=== PATIENT | male | born 1970 | race Caucasian/White ===

== ENCOUNTER 2017-08-24 20:22 | Emergency (ER) | payer MEDICAID ==
[2017-08-24] MEDS ORDERED: NORMAL SALINE 1000 ML 1,000 ML IV ONE (20:43)
[2017-08-24] MEDS ORDERED: ONDANSETRON HCL INJ/PF 4 MG/2 ML SDV IV ONE (20:44)
[2017-08-24] MEDS ORDERED: HYDROMORPHONE HCL INJ/PF 2 MG/ML AMPULE IV ONE ×2 (20:45→22:35)
--- NOTE | 2017-08-24 20:48 | ER Document Report ---
ED Medical Screen (RME) - General Chief Complaint: Abdominal Pain Stated Complaint: PAIN ON LEFT SIDE OF BODY Time Seen by Provider: 08/24/17 20:42 Notes: Patient's complaining of left lower quadrant abdominal pain for the past 3 days. Occasionally, it shoots across to the right abdomen. Patient has been nauseated but not vomiting. No diarrhea. Last bowel movement was last night. Patient had similar pain to what he is now experiencing 2 years ago when he had diverticulitis and subsequently had surgery to remove a portion of large bowel. He had C. difficile at that time, as well. TRAVEL OUTSIDE OF THE [place] IN LAST 30 DAYS: No - Related Data Allergies/Adverse Reactions: morphine Allergy (Verified 08/24/17 20:25) Past Medical History - Social History Chew tobacco use (# tins/day): No Frequency of alcohol use: Rare Drug Abuse: Marijuana Renal/ Medical History: Reports: Hx Kidney Stones. Denies: Hx Peritoneal Dialysis GI Medical History: Reports: Hx Gastroesophageal Reflux Disease - Immunizations Hx Diphtheria, Pertussis, Tetanus Vaccination: Yes History of Influenza Vaccine for 08/2017 - 01/2018 Season: No Physical Exam - Vital signs Vitals: Temp Pulse Resp BP Pulse Ox 97.8 F 90 20 137/93 H 98 08/24/17 20:26 08/24/17 20:26 08/24/17 20:26 08/24/17 20:26 08/24/17 20:26 Course - Vital Signs Vital signs: Temp Pulse Resp BP Pulse Ox 97.8 F 90 20 137/93 H 98 08/24/17 20:26 08/24/17 20:26 08/24/17 20:26 08/24/17 20:26 08/24/17 20:26
[2017-08-24 21:34] LABS: APPEARANCE,URINE CLEAR; BILIRUBIN,URINE NEGATIVE (NEGATIVE); GLUCOSE, URINE NEGATIVE (NEGATIVE); KETONES,URINE NEGATIVE (NEGATIVE); LEUKOCYTE ESTERASE,URINE NEGATIVE (NEGATIVE); NITRITE,URINE NEGATIVE (NEGATIVE); PROTEIN,URINE NEGATIVE (NEGATIVE); URINE SPECIFIC GRAVITY 1.009; UROBILINOGEN,URINE NEGATIVE mg/dL (<2.0)
[2017-08-24 21:37] LABS: ABSOLUTE EOSINOPHILS # (AUTO) 0.3 10^3/uL (0.0-0.6); ABSOLUTE LYMPHOCYTES (AUTO) 4.2 10^3/uL (0.5-4.7); ABSOLUTE MONOCYTES (AUTO) 0.5 10^3/uL (0.1-1.4); ABSOLUTE NEUT (AUTO) 3.5 10^3/uL (1.7-8.2); BASOPHILS % (AUTO) 0.5 % (0-2); EOSINOPHILS % (AUTO) 3.9 % (0-6); HEMATOCRIT 40.5 % (37.9-51.0); HEMOGLOBIN 13.9 g/dL (13.5-17.0); HGB HCT DIFFERENCE 1.2; LYMPHOCYTES % (AUTO) 48.9 % (13-45); MEAN CORPUSCULAR HEMOGLOBIN 33.8 pg (27.0-33.4); MEAN CORPUSCULAR HGB CONC 34.3 g/dL (32.0-36.0); MEAN CORPUSCULAR VOLUME 98 fl (80-97); RED BLOOD COUNT 4.12 10^6/uL (4.35-5.55); SEGMENTED NEUTROPHILS % (AUTO) 40.7 % (42-78); WHITE BLOOD COUNT 8.5 10^3/uL (4.0-10.5)
--- NOTE | 2017-08-24 22:03 | ER Document Report ---
ED GI/ - General Chief Complaint: Abdominal Pain Stated Complaint: PAIN ON LEFT SIDE OF BODY Time Seen by Provider: 08/24/17 20:42 Mode of Arrival: Ambulatory Information source: Patient Notes: 46 yo smoker, non dm, marijuana, non etoh male c/o LLQ abdominal pain since wednesday, got worse last night. Had to elave work due to the pain. From [facility]. Hx bad diveritulitis and C diff requiring partial colectomy 2014. Some nausea. No fever. No testicular pain. No heamturia. Hx kidney stones , no flank pain. Some diarrhea. Due for CT scan at 2330. Wants to wait for antibiotics until the ct is sresulted. TRAVEL OUTSIDE OF THE [place] IN LAST 30 DAYS: No - Related Data Allergies/Adverse Reactions: morphine Allergy (Verified 08/24/17 20:25) Home Medications: Current Home Medications Pantoprazole Sodium [Protonix] 40 mg PO BID 08/24/17 [History] Past Medical History - General Information source: Patient - Social History Smoking Status: Current Every Day Smoker Chew tobacco use (# tins/day): No Frequency of alcohol use: Rare Drug Abuse: Marijuana Lives with: Family Family History: Reviewed & Not Pertinent Renal/ Medical History: Reports: Hx Kidney Stones. Denies: Hx Peritoneal Dialysis GI Medical History: Reports: Hx Diverticulitis, Hx Gastroesophageal Reflux Disease Past Surgical History: Reports: Other - parital colectomy - Immunizations Hx Diphtheria, Pertussis, Tetanus Vaccination: Yes Review of Systems - Review of Systems Constitutional: No symptoms reported EENT: No symptoms reported Cardiovascular: No symptoms reported Respiratory: No symptoms reported Gastrointestinal: See HPI Genitourinary: No symptoms reported Male Genitourinary: No symptoms reported Musculoskeletal: No symptoms reported Skin: No symptoms reported Hematologic/Lymphatic: No symptoms reported Neurological/Psychological: No symptoms reported Physical Exam - Vital signs Vitals: Temp Pulse Resp BP Pulse Ox 97.8 F 90 20 137/93 H 98 08/24/17 20:26 08/24/17 20:26 08/24/17 20:26 08/24/17 20:26 08/24/17 20:26 Interpretation: Normal - General General appearance: Appears well, Alert - HEENT Head: Normocephalic, Atraumatic Eyes: Normal Pupils: PERRL Neck: Supple. No: Lymphadenopathy - Respiratory Respiratory status: No respiratory distress Chest status: Nontender Breath sounds: Normal Chest palpation: Normal - Cardiovascular Rhythm: Regular Heart sounds: Normal auscultation Murmur: No - Abdominal Inspection: Normal Distension: No distension Bowel sounds: Normal Tenderness: Tender - LLQ, Other - palpation on the RLQ makes the LLQ hurt Organomegaly: No organomegaly - Back Back: Normal, Nontender. No: CVA tenderness - Extremities General upper extremity: Normal inspection, Nontender, Normal color, Normal ROM , Normal temperature General lower extremity: Normal inspection, Nontender, Normal color, Normal ROM , Normal temperature, Normal weight bearing. No: Thania's sign - Neurological Neuro grossly intact: Yes Cognition: Normal Orientation: AAOx4 Andrew Coma Scale Eye Opening: Spontaneous [place]ade[place] Coma Scale Verbal: Oriented [place] Coma Scale Motor: Obeys Commands Andrew Coma Scale Total: 15 Speech: Normal Motor strength normal: LUE, RUE, LLE, RLE Sensory: Normal - Psychological Associated symptoms: Normal affect, Normal mood - Skin Skin Temperature: Warm Skin Moisture: Dry Skin Color: Normal Skin irregularity: negative: Rash Course - Re-evaluation Re-evalutation: 08/25/17 01:04 had bm, pain returning. 08/25/17 01:40 had to call radiologist they are behind, reading ct now. 08/25/17 01:58 CT scan is negative except for large amount of stool in the colon which he is passed in the emergency department, althought he states the pain returned - Vital Signs Vital signs: Temp Pulse Resp BP Pulse Ox 97.8 F 90 20 118/88 H 91 L 08/24/17 20:26 08/24/17 20:26 08/24/17 23:01 08/24/17 23:01 08/24/17 23:01 - Laboratory Result Diagrams: 08/24/17 21:00 08/24/17 21:00 Laboratory results interpreted by me: 08/24/17 08/24/17 08/24/17 20:55 21:00 21:00 RBC 4.12 L MCV 98 H MCH 33.8 H Seg Neutrophils % 40.7 L Lymphocytes % 48.9 H Carbon Dioxide 31 H Urine Blood SMALL H Discharge - Discharge Clinical Impression: LLQ abdominal pain Condition: Good Disposition: HOME, SELF-CARE Instructions: Abdominal Pain ([facility]), Family Physicians / Practices Additional Instructions: to er if worse see family practice doctor for follow up stool softner daily drink plenty of fluids daily copy of labs and CT given to you Please complete the patient satisfaction survey if you get one, and return it.. If you do not receive a survey, then you can go to the [facility] website, [email or web address] and place your comments about your very good care. Thank you very much. It was a pleasure being your medical provider today. Forms: Return to Work
[2017-08-24 22:44] LABS: ALANINE AMINOTRANSFERASE 37 U/L (21-72); ALBUMIN 4.3 g/dL (3.5-5.0); ALKALINE PHOSPHATASE 51 U/L (38-126); ANION GAP 8 (5-19); ASPARTATE AMINO TRANSFERASE 38 U/L (17-59); BILIRUBIN,DIRECT 0.4 mg/dL (0.0-0.4); BILIRUBIN,TOTAL 0.4 mg/dL (0.2-1.3); BLOOD UREA NITROGEN 9 mg/dL (7-20); CALCIUM 9.6 mg/dL (8.4-10.2); CARBON DIOXIDE 31 mmol/L (22-30); CHLORIDE 103 mmol/L (98-107); CREATININE RESULT 0.92 mg/dL (0.52-1.25); GLUCOSE 75 mg/dL (75-110); LIPASE 111.6 U/L (23-300); POTASSIUM 4.1 mmol/L (3.6-5.0); SODIUM 141.8 mmol/L (137-145); TOTAL PROTEIN 7.1 g/dL (6.3-8.2)
[2017-08-25] MEDS ORDERED: HYDROMORPHONE HCL INJ/PF 2 MG/ML AMPULE IV ONE (01:03)
--- NOTE | 2017-08-25 01:39 | RADIOLOGY REPORT (SQ) ---
EXAMINATION: POSTCONTRAST ABDOMEN AND PELVIC CT EXAMINATION. REFERRAL DIAGNOSIS: Left lower quadrant abdominal pain. History of diverticulitis with surgery. COMPARISONS: No comparison CT examinations are currently available. PROCEDURE: Using low-dose helical technique, thin section axial images were performed through the abdomen and pelvis after the uncomplicated intravenous administration of 92 ml of Isovue-370 nonionic iodinated contrast material. FINDINGS: Large amount stool in the rectum, sigmoid colon and descending colon. No evidence of sigmoid colon surgical anastomotic breakdown or abscess. No bowel obstruction or free peritoneal gas. No inflammatory bowel disease, intra-abdominal abscess or retroperitoneal hemorrhage. No acute appendicitis. The appendix is clearly visualized and is normal. The liver, spleen, fluid-filled gallbladder, pancreas, stomach, duodenum, adrenal glands, kidneys are normal. Small sliding gastric hiatal hernia. Minimal atherosclerotic calcification in the abdominal aorta without aneurysm. Greatest AP diameter of the infrarenal abdominal aorta equals 1.9 cm. Degenerative disease in the lower lumbosacral spine. Bones are otherwise normal. IMPRESSION: 1. Large amount stool in the rectum and sigmoid colon. No bowel obstruction or sigmoid colon anastomotic breakdown. 2. No evidence of diverticulitis or appendicitis. No inflammatory bowel disease, bowel obstruction or extraluminal bowel gas. 3. Small sliding gastric hiatal hernia.
[2017-08-25 02:35] VITALS: BP 118/90
== END 2017-08-25 02:35 | disposition home or self-care (01) ==
LOC: ER 20:22
DX: R10.32 Left lower quadrant pain (principal); R11.0 Nausea; R19.7 Diarrhea, unspecified; F17.200 Nicotine dependence, unspecified, uncomplicated; Z87.19 Personal history of other diseases of the digestive system; Z90.49 Acquired absence of other specified parts of digestive tract; Z87.442 Personal history of urinary calculi; Z88.5 Allergy status to narcotic agent
CPT/HCPCS: 96376; 99284; 96361; 96374; 96375; 36415; 83690; 85025; 80053; 81001; 74177; J1170 ×2; J2405